=== PATIENT | female | born 1980 | race African-American/Black ===

== ENCOUNTER 2017-05-04 16:25 | Emergency (ER) | payer BC ==
[2017-05-04 17:22] VITALS: BP 126/85
--- NOTE | 2017-05-04 17:31 | UC ---
Throat Pain/Nasal Louie HPI - HPI Summary HPI Summary: complaint of right ear pain that started appros 4-5 days ago yellow fluid coming out in the morning uncomfortable at night hearing diminished in right ear denies nasal congestion, sore throat, and cough denies fever - History of Current Complaint Chief Complaint: UCEar Stated Complaint: EAR PAIN Time Seen by Provider: 05/04/17 17:20 Hx Obtained From: Patient Hx Last Menstrual Period: sometime in march - Allergies/Home Medications Allergies/Adverse Reactions: Allergies Allergy/AdvReac Type Severity Reaction Status Date / Time No Known Allergies Allergy Verified 05/04/17 17:22 PMH/Surg Hx/FS Hx/Imm Hx Previously Healthy: Yes - IBS-chronic - Surgical History Surgical History: Yes Surgery Procedure, Year, and Place: Ortho gonathic (jaw) 2007 - Family History Known Family History: Positive: None Negative: Cardiac Disease, Hypertension, Diabetes - Social History Occupation: Employed Full-time Lives: With Family Alcohol Use: None Substance Use Type: None Smoking Status (MU): Never Smoked Tobacco - Immunization History Most Recent Influenza Vaccination: Doesn't usually get Review of Systems Constitutional: Negative Skin: Negative Eyes: Negative ENT: Ear Ache Respiratory: Negative Cardiovascular: Negative Gastrointestinal: Negative Genitourinary: Negative Motor: Negative Neurovascular: Negative Musculoskeletal: Negative Neurological: Negative Psychological: Negative All Other Systems Reviewed And Are Negative: Yes Physical Exam Triage Information Reviewed: Yes Appearance: No Pain Distress, Well-Nourished Vital Signs: Initial Vital Signs Temp 99.6 F 05/04/17 17:16 Pulse 93 05/04/17 17:16 Resp 16 05/04/17 17:16 BP 126/85 05/04/17 17:16 Pulse Ox 100 05/04/17 17:16 Vital Signs Reviewed: Yes Eyes: Positive: Conjunctiva Clear ENT: Positive: Pharynx normal, TMs normal - left, Other: - Right TM not visulaized d/t cerumen blocking the ear canal. Negative: Nasal congestion, Nasal drainage Neck: Positive: No Lymphadenopathy Respiratory: Positive: Lungs clear, Normal breath sounds, No respiratory distress Cardiovascular: Positive: RRR, No Murmur, Pulses Normal Abdomen Description: Positive: Nontender, Soft Bowel Sounds: Positive: Present Neurological: Positive: Alert Psychological Exam: Normal Skin Exam: Normal Throat Pain/Nasal Course/Dx - Course Course Of Treatment: exam completed otitis ecxterna in right ear- will treat with ciprodex - Differential Dx/Diagnosis Differential Diagnosis/HQI/PQRI: Otitis Media, Other - cerumen Provider Diagnoses: otits externa right Discharge - Discharge Plan Condition: Stable Disposition: HOME Prescriptions: Ciproflox/Dexameth OTIC.SUSP* [Ciprodex OTIC.SUSP*] 4 drop RIGHT EAR BID #1 btl Patient Education Materials: Otitis Externa (ED) Referrals: Rich Lu MD [Primary Care Provider] - Additional Instructions: Please start antibiotic as directed Increase fluids and rest Take acetaminophen or ibuprofen for fever or pain Please review your discharge instructions. If your symptoms do not improve please call your primary care provider or return to urgent care.
[2017-05-04] MEDS ORDERED: Carbamide Peroxide 6.5% OTIC* 15 ML BTL LEFT EAR SCH (21:00)
== END 2017-05-04 18:25 | disposition home or self-care (01) ==
LOC: UCEAST 16:25
DX: H60.91 Unspecified otitis externa, right ear (principal)
CPT/HCPCS: 99213; G0463